=== PATIENT | female | born 1995 | race Hispanic/Latino ===

== ENCOUNTER 2017-05-08 17:05 | Emergency (ER) | payer SELFPAY ==
[2017-05-08 17:06] VITALS: BMI 29.0
[2017-05-08 17:45] VITALS: PULSE 75; RESP 16; TEMP 98.6; O2SAT 99
[2017-05-08 18:28] LABS: BASO # 0.1 K/uL (0.0-0.2); EOS # 0.1 K/uL (0.0-0.7); EOS % 1.2 % (0.0-4.0); HEMATOCRIT 40.1 % (34.0-47.0); LYMPH # 2.4 K/uL (1.0-4.3); LYMPH % 28.2 % (20.0-40.0); MEAN CELL VOLUME 87.7 fl (81.0-99.0); MEAN CORPUSCULAR HEMOGLOBIN 28.8 pg (27.0-31.0); MEAN CORPUSCULAR HGB CONC 32.9 g/dL (33.0-37.0); MEAN PLATELET VOLUME 8.9 fl (7.2-11.7); MONO # 0.7 K/uL (0.0-0.8); MONO % 7.8 % (0.0-10.0); NEUT # 5.2 K/uL (1.8-7.0); NEUT % 61.8 % (50.0-75.0); NRBC % 0.1 % (0.0-0.0); RED CELL DISTRIBUTION WIDTH 13.8 % (11.5-14.5); WHITE BLOOD COUNT 8.5 K/uL (4.8-10.8)
[2017-05-08 18:40] LABS: ALB/GLOB RATIO 1.3 (1.0-2.1); ALKALINE PHOSPHATASE 60 U/L (38-126); ALT/SGPT 30 U/L (9-52); AST/SGOT 26 U/L (14-36); BILIRUBIN,TOTAL 0.4 mg/dl (0.2-1.3); BLOOD UREA NITROGEN 10 mg/dl (7-17); CARBON DIOXIDE 23 mmol/L (22-30); CHLORIDE 105 mmol/L (98-107); GFR AFRICAN-AMERICAN > 60; GLUCOSE,RANDOM 75 mg/dL (65-105); POTASSIUM 3.8 MMOL/L (3.6-5.0); SODIUM 139 mmol/l (132-148); TOTAL PROTEIN 7.7 G/DL (6.3-8.2)
--- NOTE | 2017-05-08 19:25 | ED PDOC ---
HPI: General Adult Time Seen by Provider: 05/08/17 17:50 Chief Complaint (Nursing): Female Genitourinary History Per: Patient Additional Complaint(s): Pt. states for the past 3 days she's had mild vaginal bleeding with cramping. States 2 weeks ago she did a HPT which was positive. Denies weakness, hx of anemia, N/V/D, hx of ectopic , previous care. Past Medical History Reviewed: Historical Data, Nursing Documentation, Vital Signs Vital Signs: Last Vital Signs Temp 98.6 F 05/08/17 17:42 Pulse 75 05/08/17 17:42 Resp 16 05/08/17 17:42 BP Pulse Ox 99 05/08/17 22:03 - Medical History PMH: Denies: Diabetes, Hepatitis, HIV, HTN, Seizures, Sexually Transmitted Disease - Family History Family History: States: No Known Family Hx - Home Medications Home Medications: Ambulatory Orders Medication Instructions Recorded Vit Calc,Iron,Folic 1 tab PO DAILY 03/14/16 [ Vitamins] Ibuprofen [Motrin Tab] 600 mg PO Q6 PRN #30 tab 03/16/16 - Allergies Allergies/Adverse Reactions: Allergies Allergy/AdvReac Type Severity Reaction Status Date / Time No Known Allergies Allergy Verified 05/08/17 17:45 Review of Systems ROS Statement: Except As Marked, All Systems Reviewed And Found Negative Genitourinary Female: Positive for: Vaginal Bleeding, Pelvic Pain Physical Exam - Reviewed Nursing Documentation Reviewed: Yes Vital Signs Reviewed: Yes - Physical Exam Appears: Positive for: Well, Non-toxic, No Acute Distress Head Exam: Positive for: ATRAUMATIC, NORMAL INSPECTION, NORMOCEPHALIC Skin: Positive for: Normal Color, Warm. Negative for: Rash Eye Exam: Positive for: EOMI, Normal appearance, PERRL ENT: Positive for: Normal ENT Inspection Neck: Positive for: Normal, Painless ROM Cardiovascular/Chest: Positive for: Regular Rate, Rhythm Respiratory: Positive for: CNT, Normal Breath Sounds Gastrointestinal/Abdominal: Positive for: Normal Exam, Soft. Negative for: Tenderness Pelvic Exam: Positive for: External Exam Normal, Speculum Exam Normal, Bimanual Exam Normal, No Cerv. Motion Tender, No Masses, Active Bleeding, Other ([facility] tech present as president and cmo; unable to visualize cervical os) Back: Positive for: Normal Inspection Extremity: Positive for: Normal ROM Neurologic/Psych: Positive for: Alert, Oriented - Laboratory Results Result Diagrams: 05/08/17 18:00 05/08/17 18:25 Urine POC: Positive - ECG O2 Sat by Pulse Oximetry: 99 - Progress ED Course And Treament: Labs ordered. TVUS Ordered. Disposition - Clinical Impression Clinical Impression: Threatened miscarriage - Patient ED Disposition Is Patient to be Admitted: Transfer of Care (Signed out to Veronique PONCE pending US results) - Disposition [facility] Disposition Time: 20:00 Condition: STABLE Additional Instructions: Follow up in 48 hours Return to ED for worsening/concerning symptoms. Instructions: Threatened Miscarriage (ED)
[2017-05-08 19:54] LABS: RBC URINE 5 /hpf (0-3); URINE BILIRUBIN NEGATIVE (NEGATIVE); URINE BLOOD MODERATE (NEGATIVE); URINE COLOR YELLOW (YELLOW); URINE GLUCOSE (UA) NEG (Normal); URINE KETONE NEGATIVE (NEGATIVE); URINE LEUKOCYTE ESTERASE NEG Leu/uL (Negative); URINE PROTEIN 30 mg/dL (NEGATIVE); URINE UROBILINOGEN 0.2-1.0 mg/dL (0.2-1.0); WBC URINE 3 /hpf (0-5)
--- NOTE | 2017-05-08 21:51 | US ---
EXAM: US First Trimester, Transabdominal CLINICAL HISTORY: 22 years old, female; Pain; Other: Pelvic pain; Gestational age or lmp: Unknown; ; Additional info: Pelvic pain, vaginal bleeding beta hCG 49155.0 TECHNIQUE: Real-time transabdominal obstetrical ultrasound of the maternal pelvis and a first trimester with image documentation. COMPARISON: There are no prior studies for comparison. FINDINGS: Gestation: There is a single gestational sac in uterus. Gestational sac has mean diameter 17 mm. pole and yolk sac cannot be identified Uterus: Uterus measures approximately 8.8 x 4.7 x 4.5 cm. Ovaries: Right ovary measures approximately 2.9 x 2.7 x 2.5 cm. Left ovary measures approximately 1.7 x 1.4 x 1.6 cm. There is flow in both ovaries on Doppler imaging. Free fluid: There is no free fluid. IMPRESSION: Single gestational sac in the uterus, not optimally evaluated on transabdominal imaging EXAM: US , Transvaginal EXAM DATE/TIME: 05/08/2017 6:05 PM CLINICAL HISTORY: 22 years old, female; Pain; Other: Pelvic pain; Gestational age or lmp: Unknown; ; Additional info: Pelvic pain, vaginal bleeding beta hCG 83981.0 TECHNIQUE: Real-time transvaginal obstetrical ultrasound of the maternal pelvis and a first trimester with image documentation. Transvaginal imaging was used for better evaluation of the fetus and adnexa. COMPARISON: There are no prior studies for comparison. FINDINGS: Gestation: There is a single gestational sac in the uterus. Sac contours are somewhat irregular. Gestational sac has mean diameter 18 mm A yolk sac is present, internal diameter measures 9 mm. there is no pole. Uterus: Cervix measures approximate 4 cm in length. Ovaries: Left ovary measures approximately 2 x 1 x 1.9 cm. Right ovary measures approximately 2.2 x 1.5 x 2.2 cm. There are multiple small follicles. There is intraovarian blood flow. Free fluid: There is no free fluid. IMPRESSION: Single gestational sac the uterus, sac size suggests a 6 week 1 day gestation, large yolk sac with no pole Findings suggest nonviable intrauterine gestation Correlation with serial beta hCG levels advised
--- NOTE | 2017-05-08 21:55 | ED PDOC ---
- Laboratory Results Result Diagrams: 05/08/17 18:00 05/08/17 18:25 Urine POC: Positive - ECG O2 Sat by Pulse Oximetry: 99 - Progress ED Course And Treament: Case endorsed to policy writer sales from Romelia PONCE pending labs, u/s EXAM: US First Trimester, Transabdominal CLINICAL HISTORY: 22 years old, female; Pain; Other: Pelvic pain; Gestational age or lmp: Unknown ; ; Additional info: Pelvic pain, vaginal bleeding beta hCG 68530.0 TECHNIQUE: Real-time transabdominal obstetrical ultrasound of the maternal pelvis and a first trimester with image documentation. COMPARISON: There are no prior studies for comparison. FINDINGS: Gestation: There is a single gestational sac in uterus. Gestational sac has mean diameter 17 mm. pole and yolk sac cannot be identified Uterus: Uterus measures approximately 8.8 x 4.7 x 4.5 cm. Ovaries: Right ovary measures approximately 2.9 x 2.7 x 2.5 cm. Left ovary measures approximately 1.7 x 1.4 x 1.6 cm. There is flow in both ovaries on Doppler imaging. Free fluid: There is no free fluid. IMPRESSION: Single gestational sac in the uterus, not optimally evaluated on transabdominal imaging EXAM: US , Transvaginal EXAM DATE/TIME: 05/08/2017 6:05 PM CLINICAL HISTORY: 22 years old, female; Pain; Other: Pelvic pain; Gestational age or lmp: Unknown ; ; Additional info: Pelvic pain, vaginal bleeding beta hCG 51993.0 TECHNIQUE: Real-time transvaginal obstetrical ultrasound of the maternal pelvis and a first trimester with image documentation. Transvaginal imaging was used for better evaluation of the fetus and adnexa. COMPARISON: There are no prior studies for comparison. FINDINGS: Gestation: There is a single gestational sac in the uterus. Sac contours are somewhat irregular. Gestational sac has mean diameter 18 mm A yolk sac is present, internal diameter measures 9 mm. there is no pole. Uterus: Cervix measures approximate 4 cm in length. Ovaries: Left ovary measures approximately 2 x 1 x 1.9 cm. Right ovary measures approximately 2.2 x 1.5 x 2.2 cm. There are multiple small follicles. There is intraovarian blood flow. Free fluid: There is no free fluid. IMPRESSION: Single gestational sac the uterus, sac size suggests a 6 week 1 day gestation, large yolk sac with no pole Findings suggest nonviable intrauterine gestation Correlation with serial beta hCG levels advised Patient educated on findings, discharged with instructions to follow up in 48 hours. Return to ED sooner for worsening/concerning symptoms. Disposition - Clinical Impression Clinical Impression: Threatened miscarriage - POA Present On Arrival: None - Disposition [facility]] Disposition: Routine/Home Disposition Time: 22:03 Condition: STABLE Additional Instructions: Follow up in 48 hours Return to ED for worsening/concerning symptoms. Instructions: Threatened Miscarriage (ED)
== END 2017-05-08 22:32 | disposition home or self-care (01) ==
LOC: H.ER 17:05
DX: O20.0 Threatened abortion (principal); Z3A.01 Less than 8 weeks gestation of pregnancy